=== PATIENT | male | born 1930 | race Caucasian/White ===

== ENCOUNTER 2017-01-28 18:31 | Emergency (ER) | payer MEDICARE, OTHER ==
[~2017-01-28] VITALS: Ht 182.9 cm; Wt 80.1 kg
[~2017-01-28 18:31] MED LIST: AMOX875 PO; BENZ100 PO; MEDR4PAK3 PO; SYNT88TA PO
[2017-01-28 18:44] VITALS: BP 113/73; PULSE 81; RESP 16; TEMP 98.4; O2SAT 9; O2SAT 99
[2017-01-28] MEDS ORDERED: LEVO88TA2 PO (18:53)
--- NOTE | 2017-01-28 19:05 | PD ---
HPI . insect repellant to right hand Chief Complaint: Skin Problem Time Seen by Provider: 19:05 Travel History International Travel<30 days: No Contact w/Intl Traveler<30days: No Traveled to known affect area: No History of Present Illness HPI 86-year-old male with history of hypothyroidism here with complaints of insect repellent on his right hand. Patient was working in his yard pulling weeds and got some insect repellent on his right hand. He immediately washed it off about 6 times and read the bottle which says to seek medical attention. He decided to come to the emergency department for further evaluation. He has no specific complaints. He denies any burning, numbness, tingling, rash etc. I have contacted [employer] control. They do not recommend any workup or treatment. PFSH Past Medical History Asthma: No Cancer: Yes (BLADDER) COPD: No Diabetes: No Diminished Hearing: No Genitourinary: Yes (PROSTATE) Hypertension: Yes Kidney Stones: Yes Respiratory: No Thyroid Disease: Yes PNEUMOCCOCAL Vaccine (Year): 2007 Past Surgical History Genitourinary Surgery: Yes (BLADDER AND PROSTRATE) Tonsillectomy: Yes Social History Alcohol Use: Yes (2-3 BEERS A DAY ON AVERAGE) Tobacco Use: Yes (1 cigar a month) Substance Use: No Allergies-Medications (Allergen,Severity, Reaction): Coded Allergies: Bactrim (Verified Allergy, Severe, Hives, 01/28/17) Cipro (Verified Allergy, Severe, DOUBLE VISION/EUPHORIA, 01/28/17) Flomax (Verified Allergy, Severe, FLU LIKE SYMPTOMS, 01/28/17) Reported Meds & Prescriptions Reported Meds & Active Scripts Active Reported Levothyroxine (Levothyroxine Sodium) 88 Mcg Tab 88 Mcg PO DAILY Review of Systems General / Constitutional: No: Fever Eyes: No: Visual changes HENT: No: Headaches Cardiovascular: No: Chest Pain or Discomfort Respiratory: No: Shortness of Breath Gastrointestinal: No: Abdominal Pain Genitourinary: No: Dysuria Musculoskeletal: No: Pain Skin: No Rash, No Itching, No Dryness, No Hives, No Lesions Neurologic: No: Weakness Psychiatric: No: Depression Endocrine: No: Polydipsia Hematologic/Lymphatic: No: Easy Bruising Physical Exam Narrative GENERAL: AAO x 3, no acute distress, Well-nourished, well-developed patient. SKIN: Warm and dry. No visible rashes or bruising. no visible irritation, burn, excoriation, cellulitis, etc. There is b/l hand/arm bruising due to thin skin. EYES: No scleral icterus. No injection or drainage. ENT: No nasal drainage noted. Mucous membranes pink. Airway patent. NECK: Supple, trachea midline. No JVD. CARDIOVASCULAR: Regular rate and rhythm without murmurs, gallops, or rubs. RESPIRATORY: Breath sounds equal bilaterally. No accessory muscle use. No rhonchi or rales. GASTROINTESTINAL: Abdomen soft, non-tender, nondistended. EXTREMITIES: No cyanosis or edema. BACK: Nontender without obvious deformity. No CVA tenderness. PSYCH: AAO x 3, normal affect. Data Data Last Documented VS Vital Signs Date Time Temp Pulse Resp B/P Pulse Ox O2 Delivery O2 Flow Rate FiO2 01/28/17 18:44 98.4 81 16 113/73 99 MDM Medical Decision Making Medical Screen Exam Complete: Yes Emergency Medical Condition: Yes Differential Diagnosis contact dermatitis, chemical burn, rash Narrative Course 86-year-old male with history of hypothyroidism here with complaints of insect repellent on his right hand. Patient was working in his yard pulling weeds and got some insect repellent on his right hand. He immediately washed it off about 6 times and read the bottle which says to seek medical attention. He decided to come to the emergency department for further evaluation. He has no specific complaints. He denies any burning, numbness, tingling, rash etc. I have contacted poison control. They do not recommend any workup or treatment. Patient seen and examined. There are no acute findings on examination. He does not have any abnormalities of his right hand. I have personally discussed with poison control. They do not recommend any workup other than, washing the hand which he has already done. They recommend if there is any dryness or irritation to use [id number] vitamin E. Patient can also contact poison control for any further questions. I discussed this with him. Patient verbalized understanding of instructions, questions were answered, and thanked me for their care. I advised them if their condition worsens, please return to the nearest emergency room for further care. Diagnosis Primary Impression: Dermatitis, contact, from chemicals Patient Instructions: Chemical Skin Burn (ED), General Instructions Additional Instructions: Please return to emergency department if your symptoms return or worsen. Follow up with your primary care provider. I have spoken with poison control, and there is no further workup or treatment necessary for your contact with this substance. If you develop any dryness or irritation, you can use vitamin E, per their recommendations. You can also return to the emergency department or follow-up with your primary care provider. Med/Other Pt SpecificInfo: No Change to Meds Disposition: 01 DISCHARGE HOME Condition: Stable Ines Hawkins Jan 28, 2017 19:05
== END 2017-01-28 19:25 | disposition home or self-care (01) ==
LOC: PHEFT 18:31
DX: L24.5 Irritant contact dermatitis due to other chemical products (principal); I10 Essential (primary) hypertension; Z87.442 Personal history of urinary calculi
CPT/HCPCS: 99283

== ENCOUNTER → 2017-12-02 | Outpatient (CLI) | payer MEDICARE, OTHER ==
[~2017-12-02] MED LIST changes: -AMOX875 PO; -BENZ100 PO; +LEVO88TA2 PO; -MEDR4PAK3 PO; -SYNT88TA PO
[2017-12-02 10:20] LABS: HEMATOCRIT 46.6 % (39.0-51.0); HEMOGLOBIN 15.3 GM/DL (13.0-17.0); MEAN CORPUSCULAR HEMOGLOBIN 32.9 PG (27.0-34.0); MEAN CORPUSCULAR HGB CONC 32.9 % (32.0-36.0); MEAN PLATELET VOLUME 8.3 FL (7.0-11.0); PLATELET COUNT 54 TH/MM3 (150-450); RED BLOOD COUNT 4.66 MIL/MM3 (4.50-5.90); WHITE BLOOD COUNT 7.4 TH/MM3 (4.0-11.0)
[2017-12-02 13:49] LABS: ALBUMIN 2.6 GM/DL (3.4-5.0); AST (GOT) 25 U/L (15-37); BLOOD UREA NITROGEN 13 MG/DL (7-18); CALCIUM 8.7 MG/DL (8.5-10.1); CHLORIDE 106 MEQ/L (98-107); CREATININE 0.97 MG/DL (0.60-1.30); GLOMERULAR FILTRATION RATE 74 ML/MIN (>89); GLUCOSE,FASTING 96 MG/DL (74-99); SODIUM (NA) 140 MEQ/L (136-145)
[2017-12-02 13:51] LABS: CHOLESTEROL 230 MG/DL (120-200)
[2017-12-02 13:54] LABS: ALKALINE PHOSPHATASE 180 U/L (45-117); ALT (GPT) 35 U/L (12-78); CHOLESTEROL/ HDL RATIO 2.34 RATIO; LDL CHOLESTEROL 117 MG/DL (0-99); LDL CHOLESTEROL DIRECT 107 MG/DL (0-99); TOTAL BILIRUBIN ADULT 1.1 MG/DL (0.2-1.0); TOTAL PROTEIN 5.8 GM/DL (6.4-8.2); TRIGLYCERIDES 74 MG/DL (42-150)
== END ==
LOC: PLAB 09:35
PROVIDERS: ATTEND Internal Medicine Interventional Cardiology
DX: I48.91 Unspecified atrial fibrillation (principal); I50.23 Acute on chronic systolic (congestive) heart failure; Z79.899 Other long term (current) drug therapy; Z79.01 Long term (current) use of anticoagulants
CPT/HCPCS: 36415; 80053; 80061; 83721; 83880; 85027

== ENCOUNTER → 2017-12-14 | Outpatient (CLI) | payer MEDICARE, OTHER ==
[2017-12-14 11:56] LABS: HEMATOCRIT 45.1 % (39.0-51.0); HEMOGLOBIN 15.3 GM/DL (13.0-17.0); MEAN CELL VOLUME 101.3 FL (80.0-100.0); MEAN CORPUSCULAR HEMOGLOBIN 34.4 PG (27.0-34.0); MEAN PLATELET VOLUME 9.1 FL (7.0-11.0); RED BLOOD COUNT 4.45 MIL/MM3 (4.50-5.90); RED CELL DISTRIBUTION WIDTH 13.9 % (11.6-17.2); WHITE BLOOD COUNT 5.7 TH/MM3 (4.0-11.0)
== END ==
LOC: PLAB 09:50
PROVIDERS: ATTEND Internal Medicine Interventional Cardiology
DX: D69.6 Thrombocytopenia, unspecified (principal); Z79.01 Long term (current) use of anticoagulants; Z79.899 Other long term (current) drug therapy
CPT/HCPCS: 36415; 85027

== ENCOUNTER → 2018-03-03 | Outpatient (CLI) | payer MEDICARE, OTHER ==
[2018-03-03 15:01] LABS: AUTOMATED NEUTROPHIL # 3.7 TH/MM3 (1.8-7.7); BASOPHIL % 0.4 % (0.0-2.0); EOSINOPHIL # 0.1 TH/MM3 (0-0.4); EOSINOPHIL % 1.1 % (0.0-4.0); HEMATOCRIT 47.4 % (39.0-51.0); HEMOGLOBIN 16.2 GM/DL (13.0-17.0); LYMPH % 35.2 % (9.0-44.0); LYMPHOCYTE # 2.5 TH/MM3 (1.0-4.8); MEAN CELL VOLUME 100.4 FL (80.0-100.0); MEAN CORPUSCULAR HEMOGLOBIN 34.4 PG (27.0-34.0); MEAN CORPUSCULAR HGB CONC 34.2 % (32.0-36.0); MEAN PLATELET VOLUME 9.7 FL (7.0-11.0); MONO % 10.9 % (0.0-8.0); MONOCYTE # 0.8 TH/MM3 (0-0.9); NEUT % 52.4 % (16.0-70.0); PLATELET COUNT 126 TH/MM3 (150-450); RED BLOOD COUNT 4.72 MIL/MM3 (4.50-5.90); RED CELL DISTRIBUTION WIDTH 14.3 % (11.6-17.2); WHITE BLOOD COUNT 7.1 TH/MM3 (4.0-11.0)
== END ==
LOC: CLAB 13:10
PROVIDERS: ATTEND Internal Medicine Interventional Cardiology
DX: D69.6 Thrombocytopenia, unspecified (principal); Z79.01 Long term (current) use of anticoagulants; Z79.899 Other long term (current) drug therapy
CPT/HCPCS: 36415; 85025